=== PATIENT | female | born 1995 | race Caucasian/White ===

== ENCOUNTER 2016-12-28 23:23 | Emergency (ER) | payer BC ==
[2016-12-28 23:34] VITALS: BMI 27.4
--- NOTE | 2016-12-28 23:35 | ED PDOC ---
Arrival/HPI - General Time Seen by Provider: 12/28/16 23:28 Historian: Patient - History of Present Illness Narrative History of Present Illness (Text): 12/28/16 23:31 Samara Salmon is a 21 year old female, whose past medical history includes eczema , who presents to the Emergency department brought in by EMS status post drinking bleach tonight. Patient alledges she got in to an argument with her boyfriend and drank 2 "swigs" of bleach prior to arrival. Patient also admits to drinking vodka tonight.Denies SI/HI. Patient denies any fever, chills, chest pain, shortness of breath, nausea, vomiting, diarrhea, urinary symptoms, back pain, neck pain, headache, dizziness, or any other complaints. Time/Duration: Prior to Arrival Symptom Onset: Sudden Symptom Course: Unchanged Activities at Onset: Light, Emotional Upset Context: Home Past Medical History - Provider Review Nursing Documentation Reviewed: Yes - Psychiatric Hx Depression: No Hx Emotional Abuse: No Hx Physical Abuse: No Hx Substance Use: No - Suicidal Assessment Feels Threatened In Home Enviroment: No Family/Social History - Physician Review Nursing Documentation Reviewed: Yes Family/Social History: No Known Family HX Hx Alcohol Use: No Hx Substance Use: No Hx Substance Use Treatment: No Allergies/Home Meds Allergies/Adverse Reactions: Allergies APPLES Allergy (Mild, Uncoded 12/28/16 23:50) ITCHING Home Medications: Home Meds Medication Instructions Recorded Confirmed Control 1 tab PO DAILY 12/28/16 Review of Systems - Physician Review All systems were reviewed & negative as marked: Yes - Review of Systems Constitutional: Normal. absent: Fevers Eyes: Normal ENT: Other (+throat "stinging") Respiratory: Normal. absent: SOB, Cough Cardiovascular: Normal. absent: Chest Pain Gastrointestinal: Nausea. absent: Abdominal Pain, Diarrhea, Vomiting, Food Intolerance Genitourinary Female: Normal. absent: Frequency, Hematuria, Urine Output Changes Musculoskeletal: Normal. absent: Back Pain, Neck Pain Skin: Normal. absent: Rash Neurological: Normal. absent: Headache, Dizziness Endocrine: Normal Hemo/Lymphatic: Normal Psychiatric: Other (+drank bleach) Physical Exam Vital Signs Reviewed: Yes Vital Signs Temp Pulse Resp BP Pulse Ox 12/29/16 04:24 87 19 133/72 100 12/28/16 23:40 98.8 F 92 H 18 144/86 99 Temperature: Afebrile Blood Pressure: Normal Pulse: Regular Respiratory Rate: Normal Appearance: Positive for: Well-Appearing, Non-Toxic, Comfortable Pain Distress: None Mental Status: Positive for: Alert and Oriented X 3 - Systems Exam Head: Present: Atraumatic, Normocephalic Pupils: Present: PERRL Extroacular Muscles: Present: EOMI Conjunctiva: Present: Normal Mouth: Present: Moist Mucous Membranes Neck: Present: Normal Range of Motion Respiratory/Chest: Present: Clear to Auscultation, Good Air Exchange. No: Respiratory Distress, Accessory Muscle Use Cardiovascular: Present: Regular Rate and Rhythm, Normal S1, S2. No: Murmurs Abdomen: Present: Normal Bowel Sounds. No: Tenderness, Distention, Peritoneal Signs Back: Present: Normal Inspection Upper Extremity: Present: Normal Inspection. No: Cyanosis, Edema Lower Extremity: Present: Normal Inspection. No: Edema Neurological: Present: GCS=15, CN II-XII Intact, Speech Normal Skin: Present: Warm, Dry, Normal Color. No: Rashes Psychiatric: Present: Alert, Oriented x 3, Normal Insight, Normal Concentration Medical Decision Making ED Course and Treatment: 12/28/16 23:31 Impression: 21 year old female presents after drinking bleach [employer]. Plan: -- EKG -- CXR -- Labs, alcohol level -- Urinalysis, urine drug screen -- Reassess and disposition Prior Visits: Notes and results from previous visits were reviewed. Progress Notes: Reviewed EKG, NSR at [address]-segment elevations or depressions, no T-wave inversions, normal intervals 12/29/16 01:54 Reviewed radiology, Chest X-ray shows no active disease. Labs within normal limits, negative tox screen, alcohol <10. 12/29/16 03:58 Pt seen and evaluated by PES santiago Ji, who discussed plan with psychiatrist. Pt stable for discharge and f/u with [facility] outpt for adjustment disorder. - Lab Interpretations Lab Results: 12/28/16 23:50 12/28/16 23:50 Lab Results 12/29/16 00:10: Urine Opiates Screen Negative, Urine Methadone Screen Negative, Ur Barbiturates Screen Negative, Ur Phencyclidine Scrn Negative, Ur Amphetamines Screen Negative, U Benzodiazepines Scrn Negative, U Oth Cocaine Metabols Negative, U Cannabinoids Screen Negative 12/28/16 23:50: Alcohol, Quantitative < 10 12/28/16 23:50: Salicylates < 1 L, Acetaminophen < 10.0 L 12/28/16 23:50: Sodium 139, Potassium 4.0, Chloride 104, Carbon Dioxide 22, Anion Gap 17, BUN 9, Creatinine 0.9, Est GFR ( Amer) > 60, Est GFR (Non- Af Amer) > 60, Random Glucose 96, Calcium 9.5, Total Bilirubin 0.8, AST 27, ALT 28, Alkaline Phosphatase 45, Total Protein 8.6 H, Albumin 4.3, Globulin 4.3, Albumin/Globulin Ratio 1.0 L 12/28/16 23:50: WBC 10.9, RBC 4.17, Hgb 12.6, Hct 35.8 L, MCV 85.9, MCH 30.2, MCHC 35.2, RDW 11.8, Plt Count 321, MPV 9.9, Gran % 74.8 H, Lymph % (Auto) 20.0 L, Harmon % (Auto) 3.5, Eos % (Auto) 1.5, Baso % (Auto) 0.2, Gran # 8.13 H, Lymph # 2.2, Harmon # 0.4, Eos # 0.2, Baso # 0.02 12/28/16 23:40: Urine Color Yellow, Urine Appearance Clear, Urine pH 6.0, Ur Specific [place] <= 1.005, Urine Protein Negative, Urine Glucose (UA) Negative, Urine Ketones Negative, Urine Blood Negative, Urine Nitrate Negative, Urine Bilirubin Negative, Urine Urobilinogen 0.2, Ur Leukocyte Esterase Negative, Urine HCG, Qual Negative I have reviewed the lab results: Yes - RAD Interpretation Radiology Orders: 12/28/16 23:45 CHEST PORTABLE [RAD] Stat - EKG Interpretation Interpreted by ED Physician: Yes Type: 12 lead EKG - Scribe Statement The provider has reviewed the documentation as recorded by the Scribe Katerina Norris All medical record entries made by the Scribe were at my direction and personally dictated by me. I have reviewed the chart and agree that the record accurately reflects my personal performance of the history, physical exam, medical decision making, and the department course for this patient. I have also personally directed, reviewed, and agree with the discharge instructions and disposition. Disposition/Present on Arrival - Present on Arrival Any Indicators Present on Arrival: No - Disposition Have Diagnosis and Disposition been Completed?: Yes Diagnosis: Adjustment disorder Disposition: HOME/ ROUTINE Disposition Time: 04:50 Patient Plan: Discharge Condition: STABLE Additional Instructions: Follow [facility] with primary
[2016-12-28 23:48] VITALS: TEMP 98.8
[2016-12-29 00:01] LABS: ADD MANUAL DIFF? NO
[2016-12-29 00:09] LABS: BASO # 0.02 K/mm3 (0.0-2.0); BASO % 0.2 % (0.0-3.0); EOS # 0.2 (0.0-0.7); EOS % 1.5 % (1.5-5.0); GRAN # 8.13 (1.4-6.5); GRAN % 74.8 % (50.0-68.0); HEMATOCRIT 35.8 % (36.0-48.0); LYMPH # 2.2 (1.2-3.4); MEAN CELL VOLUME 85.9 fL (80.0-105.0); MEAN CORPUSCULAR HEMOGLOBIN 30.2 pg (25.0-35.0); MEAN CORPUSCULAR HGB CONC 35.2 g/dl (31.0-37.0); MEAN PLATELET VOLUME 9.9 fl (7.0-11.0); MONO # 0.4 (0.1-0.6); MONO % 3.5 % (1.0-6.0); PLATELET COUNT 321 10^3/uL (120.0-450.0); RED CELL DISTRIBUTION WIDTH 11.8 % (11.5-14.5); WHITE BLOOD COUNT 10.9 10^3/ul (4.5-11.0)
[2016-12-29 00:23] LABS: ALKALINE PHOSPHATASE 45 U/L (38-133); ALT/SGPT 28 U/L (7-56); AST/SGOT 27 U/L (15-39); BILIRUBIN,TOTAL 0.8 mg/dL (0.2-1.3); BLOOD UREA NITROGEN 9 mg/dL (7-21); CALCIUM 9.5 mg/dL (8.4-10.5); CARBON DIOXIDE 22 mmol/L (21-33); CHLORIDE 104 mmol/L (95-110); GFR AFRICAN-AMERICAN > 60; GLUCOSE,RANDOM 96 mg/dL (70-110); SODIUM 139 mmol/L (132-148); TOTAL PROTEIN 8.6 g/dL (5.8-8.3)
[2016-12-29 00:27] LABS: URINE BILIRUBIN NEGATIVE (NEGATIVE); URINE BLOOD NEGATIVE (NEGATIVE); URINE GLUCOSE (UA) NEGATIVE (NEGATIVE); URINE KETONE NEGATIVE (NEGATIVE); URINE LEUKOCYTE ESTERASE NEGATIVE Leu/uL (NEGATIVE); URINE PROTEIN NEGATIVE mg/dL (<30 mg/dL); URINE UROBILINOGEN 0.2 E.U./dL (<1 E.U./dL)
[2016-12-29 00:31] LABS: URINE APPEARANCE CLEAR (CLEAR); URINE COLOR YELLOW (YELLOW)
[2016-12-29 04:25] VITALS: BP 133/72; PULSE 87; RESP 19; O2SAT 100
--- NOTE | 2016-12-29 07:19 | RAD ---
HISTORY: ingestion bleach COMPARISON: No prior. FINDINGS: LUNGS: No active pulmonary disease. PLEURA: No significant pleural effusion identified, no pneumothorax apparent. CARDIOVASCULAR: Normal. OSSEOUS STRUCTURES: No significant abnormalities. VISUALIZED UPPER ABDOMEN: Normal. OTHER FINDINGS: None. IMPRESSION: No active disease.
--- NOTE | 2016-12-29 21:48 | CARD ---
APPROVED REPORT EKG Measurement Heart [id number] <Conclusion> Poor data quality, interpretation may be adversely affected Normal sinus rhythm Normal ECG
== END 2016-12-29 05:17 | disposition home or self-care (01) ==
LOC: ED 23:23
DX: F43.20 Adjustment disorder, unspecified (principal)
CPT/HCPCS: 71010; 80053; 81003; 84703; 85025; 90791; 93005; 99285; G0480